=== PATIENT | female | born 2000 | race Caucasian/White ===

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

== ENCOUNTER → 2022-07-16 | Outpatient (CLI) | payer OTHER ==
--- NOTE | 2022-07-16 09:32 | US ---
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 TECHNIQUE: Multiple sonographic images of the abdomen are obtained. FINDINGS: EXAM MEASUREMENTS: Liver Length: 14.1 cm Gallbladder Wall: 0.15 cm CBD: 0.20 cm Spleen: 9.3 cm Right Kidney: 8.8 x 3.9 x 4.5 cm Left Kidney: 8.4 x 4.2 x 3.9 cm Pancreas: wnl Liver: wnl Gallbladder: wnl Evidence for sonographic Rivas's sign: No CBD: wnl Spleen: wnl Right Kidney: wnl Left Kidney: wnl Upper IVC: wnl Abd Aorta: wnl The liver is homogenous. The intrahepatic portion of the IVC and proximal abdominal aorta are within normal limits. There is no evidence of cholelithiasis. Common bile duct is unremarkable. The visu alized portions of the pancreas are homogenous. The spleen is unremarkable. Kidneys are symmetric a nd free of hydronephrosis. No renal lesions are seen. IMPRESSION: No acute findings are evident. Unremarkable study.
== END | disposition home or self-care (01) ==
LOC: RADUSWWP 08:56
PROVIDERS: ATTEND Pediatrics Adolescent Medicine
DX: K58.0 Irritable bowel syndrome with diarrhea (principal)
CPT/HCPCS: 76700